=== PATIENT | female | born 1955 | race African-American/Black ===

== ENCOUNTER 2017-09-26 15:37 | Emergency (ER) | payer MEDICAID ==
[~2017-09-26] VITALS: Ht 180.3 cm; Wt 65.8 kg
[~2017-09-26 15:37] MED LIST: ATEN25TA2 PO; RIZA10TA16 PO
[2017-09-26 15:41] VITALS: BP 149/90
--- NOTE | 2017-09-26 15:48 | NUR ---
PT AMBULATED TO ER CHAIR D
--- NOTE | 2017-09-26 15:55 | NUR ---
62F BIB SELF WITH C/O NASAL DRAINAGE X 2 DAYS, DENIES ANY FEVERS/CHILLS. NO RESP DISTRESS. RESP EVEN AND UNLABORED. PT IS AOX4 WITH STEADY GAIT. SKIN WARM/PINK/DRY. NAD. VSS. WILL CONTINUE TO MONITOR.
== END 2017-09-26 16:00 | disposition home or self-care (01) ==
LOC: MED 15:37
DX: J02.9 Acute pharyngitis, unspecified (principal)
CPT/HCPCS: 99283

== ENCOUNTER 2018-12-01 19:42 | Emergency (ER) | payer MEDICARE, MEDICAID ==
[~2018-12-01] VITALS: Ht 180.3 cm; Wt 68.0 kg
[2018-12-01 19:54] VITALS: BP 137/79
--- NOTE | 2018-12-01 19:57 | NUR ---
VISUAL ACUITY BOTH EYE 20/200, RT EYE 20/200. LT 20/200
--- NOTE | 2018-12-01 19:57 | NUR ---
TO LOBBY A/W BED, AMBULATORY, VSS
--- NOTE | 2018-12-01 20:20 | NUR ---
PT BIB WHEELCHAIR TO ER BED 1
--- NOTE | 2018-12-01 20:21 | NUR ---
PT PRESENTED ER WITH C/O OF PAIN TO THE LEFT 2 TOES X 2 WEEKS. PT STATED SHE WAS PLAYING BASKETBALL WITH HER GRANDSON AND INJURED HER FOOT. PT HAS ROM AND IS ABLE TO WIGGLE TOES. NO BRUISING OR REDNESS TO SIGHT. PT IS A/O X 4. PAIN LEVEL IS 8/10 AT THIS TIME. ER MD MADE AWARE OF STATUS. SAFETY PROTOCOL IMPLEMENTED, BED RAILS UP X 1.
[2018-12-01 20:30] LABS: APPEARANCE,URINE CLEAR (CLEAR); BILIRUBIN,URINE 2+ (NEGATIVE); BLOOD, URINE TRACE-I (NEGATIVE); COLOR,URINE YELLOW (YELLOW); LEUKOCYTE ESTERASE ,URINE NEGATIVE (NEGATIVE); NITRITE, URINE NEGATIVE (NEGATIVE); UGLUCOSE TRACE (NEGATIVE)
[2018-12-01] MEDS ORDERED: ONDANSETRON 4 MG ODT PO ONE (20:50)
[2018-12-01] MEDS ORDERED: KETOROLAC 60 MG/2 ML VIAL IM ONE (20:50)
[2018-12-01 21:21] VITALS: BP 137/79
--- NOTE | 2018-12-01 21:21 | NUR ---
Patient discharged with v/s stable. Written and verbal after care instructions given and explained. Patient alert, oriented and verbalized understanding of instructions. Ambulatory with steady gait. All questions addressed prior to discharge. ID band removed. Patient advised to follow up with PMD. Rx of ZOFRAN, MOTRIN, AND BACTRIM WAS given. Patient educated on indication of medication including possible reaction and side effects. Opportunity to ask questions provided and answered.
== END 2018-12-01 21:21 | disposition home or self-care (01) ==
LOC: MED 19:42
DX: S92.501A Displaced unspecified fracture of right lesser toe(s), initial encounter for closed fracture (principal); N39.0 Urinary tract infection, site not specified; I10 Essential (primary) hypertension; Z85.038 Personal history of other malignant neoplasm of large intestine; Z79.899 Other long term (current) drug therapy; X58.XXXA Exposure to other specified factors, initial encounter; Y93.89 Activity, other specified; Y92.89 Other specified places as the place of occurrence of the external cause; Y99.8 Other external cause status
CPT/HCPCS: 73660; 81003; 96372; 99284; J1885; Q0092; Q0162

== ENCOUNTER 2019-01-28 10:33 | Emergency (ER) | payer MEDICARE, MEDICAID ==
[~2019-01-28] VITALS: Ht 180.3 cm; Wt 60.8 kg
[2019-01-28 10:35] VITALS: BP 120/91
--- NOTE | 2019-01-28 10:35 | NUR ---
BIB SELF. PT C/O BURNING SENSATION DURING URINATION, CHILLS SINCE YESTERDAY. STATES HAVING PAIN 8/10 AT LOWER ABD, DENIES FEVER, NAUSEA, VOMITING.PT AAOX4. ABDOMEN SOFT AND NON-TENDER TO TOUCH.VS NORMAL AT THIS TIME. PROVIDED URINE CUP FOR SPECIMEN. ER MD TO SEE PT.
--- NOTE | 2019-01-28 10:35 | NUR ---
Note [email or web address] in EDM - 01/28/19 at 1057 by [facility] BIB SELF. PT C/O BURNING SENSATION DURING URINATION, CHILLS SINCE YESTERDAY. STATES HAVING PAIN 8/10 AT LOWER ABD, DENIES FEVER, NAUSEA, VOMITING. PT AAOX4. VS NORMAL AT THIS TIME. PROVIDED URINE CUP FOR SPECIMEN. SUNG LOPEZ TO SEE PT.
--- NOTE | 2019-01-28 10:38 | NUR ---
Patient ambulated to bed 11. RN evaluating patient at bedside.
--- NOTE | 2019-01-28 11:36 | NUR ---
Dr. Parra evaluating patient at bedside.
[2019-01-28] MEDS ORDERED: KETOROLAC 60 MG/2 ML VIAL IM ONE (11:40)
--- NOTE | 2019-01-28 11:41 | NUR ---
PT SEEN BY DR. KWON AT THE BEDSIDE.
--- NOTE | 2019-01-28 12:03 | NUR ---
Dr. Parra re-evaluating patient at bedside.
[2019-01-28 12:06] VITALS: BP 120/91
--- NOTE | 2019-01-28 12:06 | NUR ---
Patient discharged with v/s stable. Written and verbal after care instructions given and explained. Patient alert, oriented and verbalized understanding of instructions. Ambulatory with steady gait. All questions addressed prior to discharge. ID band removed. Patient advised to follow up with PMD. Rx of INDERAL, MOTRIN AND CIPRO given. Patient educated on indication of medication including possible reaction and side effects. Opportunity to ask questions provided and answered.
== END 2019-01-28 12:06 | disposition home or self-care (01) ==
LOC: MED 10:33
DX: N39.0 Urinary tract infection, site not specified (principal); R19.7 Diarrhea, unspecified; I10 Essential (primary) hypertension; Z90.49 Acquired absence of other specified parts of digestive tract; Z79.899 Other long term (current) drug therapy; Z85.038 Personal history of other malignant neoplasm of large intestine; Z98.890 Other specified postprocedural states
CPT/HCPCS: 81002; 81025; 96372; 99283; J1885

== ENCOUNTER 2019-02-15 13:40 | Emergency (ER) | payer MEDICARE, MEDICAID ==
[~2019-02-15] VITALS: Ht 180.3 cm; Wt 56.7 kg
[2019-02-15 13:44] VITALS: BP 133/67
--- NOTE | 2019-02-15 13:51 | NUR ---
PT PROVIDED URINE SAMPLE AND TO JESUS KENNEDY.
--- NOTE | 2019-02-15 14:00 | NUR ---
PT BIBA C/O FALL, PT STATES SHE WAS GETTING OUT OF CAR AND FELL AND HIT BACK OF HEAD, PT DENIES LOC, PT STATES SHE FELL 2 DAYS AGO AND HAD STITCHES PLACED TO RT SIDE OF EYEBROW. PT AWAKE AND ALERT, PUPILS EQUAL AND REACTIVE, PT RECALLS ALL EVENTS THAT HAPPENED TODAY, AMBULATORY . DENIES N/V/D; SKIN IS PINK/WARM/DRY; AAOX4; PT DENIES ANY FEVER, CP, SOB, OR COUGH AT THIS TIME; PATIENT STATES BACK PAIN AND HEADACHE OF 7/10 AT THIS TIME; VSS; PATIENT POSITIONED FOR COMFORT; HOB ELEVATED; BEDRAILS UP X1; BED DOWN. ER MD MADE AWARE OF PT STATUS.
--- NOTE | 2019-02-15 14:24 | NUR ---
PT AMBULATED TO BED 05.
[2019-02-15] MEDS ORDERED: NACL 0.9% 1,000 ML IV SCH (15:48)
[2019-02-15] MEDS ORDERED: ONDANSETRON 4 MG/2 ML VIAL IVP ONE (15:50)
--- NOTE | 2019-02-15 16:02 | NUR ---
PATIENT TAKEN FOR CT SCAN VIA [facility] AT THIS TIME.
[2019-02-15 16:31] LABS: APPEARANCE,URINE CLEAR (CLEAR); BILIRUBIN,URINE NEGATIVE (NEGATIVE); BLOOD, URINE NEGATIVE (NEGATIVE); COLOR,URINE YELLOW (YELLOW); LEUKOCYTE ESTERASE ,URINE NEGATIVE (NEGATIVE); NITRITE, URINE NEGATIVE (NEGATIVE); PH,URINE 6.5 (5.0-9.0); UGLUCOSE NEGATIVE (NEGATIVE)
[2019-02-15 16:36] LABS: BASOPHILS % (AUTO) 0.4 % (0.0-2.0); EOSINOPHILS % (AUTO) 0.9 % (0.0-4.0); HEMATOCRIT 38.1 % (36-48); LYMPHOCYTES # (AUTO) 1.3 K/uL (2.5-16.5); LYMPHOCYTES % (AUTO) 34.9 % (20.5-51.1); MEAN CORPUSCULAR HEMOGLOBIN 32 pg (27-31); MEAN CORPUSCULAR HGB CONC 34 g/dL (33-37); MEAN CORPUSCULAR VOLUME 94.6 fL (80-94); MONOCYTES # (AUTO) 0.4 K/uL (0.8-1.0); MONOCYTES % (AUTO) 11.2 % (1.7-9.3); NEUTROPHILS % (AUTO) 52.6 % (42.2-75.2); PLATELET COUNT (AUTO) 167 K/uL (140-450); RED BLOOD CELL COUNT(AUTO) 4.03 MIL/uL (4.20-5.40); RED CELL DISTRIBUTION WIDTH 14.6 % (11.6-13.7); WHITE BLOOD COUNT (AUTO) 3.7 K/uL (4.8-10.8)
[2019-02-15 16:38] LABS: BARBITURATE, URINE NEG. ng/ml (NEG <=200); BENZODIAZEPINE, URINE NEG. ng/mL (NEG <=200); CANNABINOID, URINE NEG. ng/mL (NEG <=50); COCAINE, URINE NEG. ng/mL (NEG <=300); OPIATE, URINE NEG. ng/mL (NEG <=2000); PHENCYCLIDINE SCREEN,URINE POS. ng/mL (NEG <=25)
[2019-02-15 16:48] LABS: ANION GAP 11.2 (8-16); CARBON DIOXIDE 29.8 mmol/L (21-32); CREATININE 0.9 mg/dL (0.6-1.3)
[2019-02-15 16:51] LABS: PROTHROMBIN TIME 9.5 secs (10.8-13.4)
[2019-02-15 16:55] LABS: ALBUMIN 3.5 g/dL (3.4-5.0); MAGNESIUM 1.8 mg/dL (1.8-2.4); TOTAL BILIRUBIN 0.4 mg/dL (0.0-1.0)
[2019-02-15 17:19] LABS: URIC ACID 3.5 mg/dL (2.6-7.2)
[2019-02-15 18:20] VITALS: BP 122/60
--- NOTE | 2019-02-15 18:21 | NUR ---
Patient discharged with v/s stable. Written and verbal after care instructions given and explained. Patient alert, oriented and verbalized understanding of instructions. Ambulatory with steady gait. All questions addressed prior to discharge. ID band removed. Patient advised to follow up with PMD. Rx of VISTARIL given. Patient educated on indication of medication including possible reaction and side effects. Opportunity to ask questions provided and answered.
== END 2019-02-15 18:21 | disposition home or self-care (01) ==
LOC: MED 13:40
DX: R27.0 Ataxia, unspecified (principal); F16.10 Hallucinogen abuse, uncomplicated; I10 Essential (primary) hypertension; F32.9 Major depressive disorder, single episode, unspecified; Z85.038 Personal history of other malignant neoplasm of large intestine; Z79.899 Other long term (current) drug therapy; Z86.19 Personal history of other infectious and parasitic diseases
CPT/HCPCS: 36415; 70450; 71045; 80053; 80173; 80305; 81003; 81025; 82150; 82550; 83690; 83735; 84484; 84550; 85025; 85379; 85610; 86140; 86886; 86900; 86901; 93005; 96374; 99284; J2405; J7030; Q0092

== ENCOUNTER 2019-03-02 07:43 | Emergency (ER) | payer MEDICARE, MEDICAID ==
[~2019-03-02] VITALS: Ht 180.3 cm; Wt 59.0 kg
--- NOTE | 2019-03-02 07:43 | NUR ---
Patient BIBA BLS, transferred to bed 7. RN evaluating patient at bedside.
[2019-03-02 07:45] VITALS: BP 144/71
--- NOTE | 2019-03-02 07:45 | NUR ---
BIB ALS, C/O cough, chest pain, headache x 3 days . pt also c/o dysuria and urgency x 3 days. DENIES N/V/D; SKIN IS PINK/WARM/DRY;awake,alert. LUNGS CLEAR BL; HR EVEN AND REGULAR; PT DENIES ANY FEVER, SOB, AT THIS TIME; PATIENT STATES PAIN OF 7/10 AT THIS TIME; VSS; PATIENT POSITIONED FOR COMFORT; HOB ELEVATED; BEDRAILS UP X2; BED DOWN. ER MD MADE AWARE OF PT STATUS.
--- NOTE | 2019-03-02 07:52 | NUR ---
Dr. Santos evaluating patient at bedside.
--- NOTE | 2019-03-02 08:03 | NUR ---
cv tech at bedside.
[2019-03-02 08:11] LABS: BASOPHILS % (AUTO) 0.2 % (0.0-2.0); EOSINOPHILS # (AUTO) 0.1 K/uL (0-0.4); EOSINOPHILS % (AUTO) 2.5 % (0.0-4.0); HEMATOCRIT 32.5 % (36-48); HEMOGLOBIN 11.3 g/dL (12.0-16.0); LYMPHOCYTES # (AUTO) 1.1 K/uL (2.5-16.5); LYMPHOCYTES % (AUTO) 42.8 % (20.5-51.1); MEAN CORPUSCULAR HEMOGLOBIN 32 pg (27-31); MEAN CORPUSCULAR HGB CONC 35 g/dL (33-37); MEAN CORPUSCULAR VOLUME 93.5 fL (80-94); MONOCYTES # (AUTO) 0.4 K/uL (0.8-1.0); MONOCYTES % (AUTO) 15.8 % (1.7-9.3); NEUTROPHILS % (AUTO) 38.7 % (42.2-75.2); PLATELET COUNT (AUTO) 133 K/uL (140-450); RED BLOOD CELL COUNT(AUTO) 3.48 MIL/uL (4.20-5.40); RED CELL DISTRIBUTION WIDTH 14.1 % (11.6-13.7); WHITE BLOOD COUNT (AUTO) 2.7 K/uL (4.8-10.8)
[2019-03-02 08:27] LABS: ALBUMIN 3.1 g/dL (3.4-5.0); ANION GAP 8.2 (8-16); CARBON DIOXIDE 30.9 mmol/L (21-32); CREATININE 0.8 mg/dL (0.6-1.3); POTASSIUM 4.1 mmol/L (3.5-5.1); TOTAL BILIRUBIN 0.4 mg/dL (0.0-1.0)
[2019-03-02 09:10] LABS: APPEARANCE,URINE CLEAR (CLEAR); BILIRUBIN,URINE NEGATIVE (NEGATIVE); BLOOD, URINE NEGATIVE (NEGATIVE); COLOR,URINE YELLOW (YELLOW); LEUKOCYTE ESTERASE ,URINE TRACE (NEGATIVE); NITRITE, URINE NEGATIVE (NEGATIVE); PH,URINE 8.5 (5.0-9.0); UGLUCOSE NEGATIVE (NEGATIVE)
[2019-03-02 09:20] LABS: RBC,URINE NONE SEEN /HPF (0-5); WBC,URINE 0-5 /HPF (0-5)
--- NOTE | 2019-03-02 09:46 | NUR ---
PT STS " I DO NOT WANT TO GO BACK TO MY DAUGHTER HOUSE BECAUSE ALL SHE WANTS ME TO DO IS WATCH HER KIDS. 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
[2019-03-02 10:05] VITALS: BP 135/70
--- NOTE | 2019-03-02 10:05 | NUR ---
Note undone in EDM - 03/02/19 at 1234 by MAYELIN Patient discharged with v/s stable. Written and verbal after care instructions given and explained. Patient alert, oriented and verbalized understanding of instructions. Ambulatory with steady gait. All questions addressed prior to discharge. ID band removed. Patient advised to follow up with PMD. Rx of PROMETHAZINE NAD PYRIDIUM given. Patient educated on indication of medication including possible reaction and side effects. Opportunity to ask questions provided and answered. PT STATED SHE WANTS TO WAIT FOR SOCIAL WORK IN [address]. LUNCH PACKAGE OFFERED.
--- NOTE | 2019-03-02 10:26 | NUR ---
Spoke with Scrummaster, Jyoti, will come evaluate the patient.
--- NOTE | 2019-03-02 10:39 | NUR ---
Jyoti evaluating patient at bedside.
--- NOTE | 2019-03-02 14:04 | NUR ---
DELEON CAB ETA 45 MINS. [facility] AT BEDSIDE.
--- NOTE | 2019-03-02 14:05 | NUR ---
Patient discharged with v/s stable. Written and verbal after care instructions given and explained. Patient alert, oriented and verbalized understanding of instructions. Ambulatory with steady gait. All questions addressed prior to discharge. ID band removed. Patient advised to follow up with PMD. Rx of PROMETHAZINE NAD PYRIDIUM given. Patient educated on indication of medication including possible reaction and side effects. Opportunity to ask questions provided and answered.
--- NOTE | 2019-03-02 14:08 | NUR ---
CALLED PT FAMILY WITH
== END 2019-03-02 14:05 | disposition home or self-care (01) ==
LOC: MED 07:43
DX: F03.90 Unspecified dementia, unspecified severity, without behavioral disturbance, psychotic disturbance, mood disturbance, and anxiety (principal); R05 Cough; R30.0 Dysuria; I10 Essential (primary) hypertension; Z85.038 Personal history of other malignant neoplasm of large intestine; Z79.899 Other long term (current) drug therapy
CPT/HCPCS: 36415; 71045; 80053; 81001; 84484; 85025; 93005; 99284; Q0092

== ENCOUNTER 2019-04-01 13:44 | Inpatient (IN) | payer MEDICAID, MEDICARE ==
[~2019-04-01] VITALS: Ht 180.3 cm; Wt 55.3 kg
[2019-04-01 14:04] VITALS: BP 129/75
--- NOTE | 2019-04-01 14:13 | NUR ---
WAIT IN LOBBY, VSS.
--- NOTE | 2019-04-01 14:59 | NUR ---
PT AMBULATED TO ER BED 06
--- NOTE | 2019-04-01 15:16 | NUR ---
C/O PERIUMBILICAL PAIN X 4 DAYS THAT IS ACHING AND COMES AND GOES, PAINFUL URINATION X 3 DAYS, CONSTANT MIGRAINE X 3 DAYS. STATES MIGRAINE VILLASENOR IS CAUSING THE MOST PAIN RIGHT NOW 05/18. STATES NAUSEA. DENIES VOMITING. DENIES DIARRHEA. LBM TODAY. FELT WARM LAST NIGHT BUT DID NOT CHECK TEMP. TRIED PUTTING ICE PACK TO HEAD FOR VILLASENOR BUT NO RELIEF. MED HX: HTN Addendum: 04/01/19 at 1617 by JOANNE NOTE BY JENNIFER CASTLE RN
[2019-04-01 16:09] LABS: APPEARANCE,URINE CLEAR (CLEAR); BILIRUBIN,URINE NEGATIVE (NEGATIVE); BLOOD, URINE NEGATIVE (NEGATIVE); COLOR,URINE YELLOW (YELLOW); LEUKOCYTE ESTERASE ,URINE TRACE (NEGATIVE); NITRITE, URINE NEGATIVE (NEGATIVE); PH,URINE 5.5 (5.0-9.0); UGLUCOSE NEGATIVE (NEGATIVE)
--- NOTE | 2019-04-01 16:17 | NUR ---
DR. ALEJANDRE EVALUATING PT AT BEDSIDE
[2019-04-01 16:30] LABS: CALCIUM OXALATE CRYSTALS,UR 0-10 /HPF (None Seen); RBC,URINE 0-5 /HPF (0-5)
[2019-04-01] MEDS ORDERED: KETOROLAC 15 MG/ML VIAL IVP ONE (16:45)
[2019-04-01 16:57] LABS: BASOPHILS % (AUTO) 0.6 % (0.0-2.0); HEMATOCRIT 34.4 % (36-48); LYMPHOCYTES # (AUTO) 1.5 K/uL (2.5-16.5); LYMPHOCYTES % (AUTO) 43.7 % (20.5-51.1); MEAN CORPUSCULAR HEMOGLOBIN 33 pg (27-31); MEAN CORPUSCULAR HGB CONC 35 g/dL (33-37); MEAN CORPUSCULAR VOLUME 93.2 fL (80-94); MONOCYTES # (AUTO) 0.4 K/uL (0.8-1.0); MONOCYTES % (AUTO) 11.1 % (1.7-9.3); NEUTROPHILS # (AUTO) 1.5 K/uL (1.8-7.7); NEUTROPHILS % (AUTO) 43.6 % (42.2-75.2); PLATELET COUNT (AUTO) 119 K/uL (140-450); RED BLOOD CELL COUNT(AUTO) 3.69 MIL/uL (4.20-5.40); RED CELL DISTRIBUTION WIDTH 13.1 % (11.6-13.7); WHITE BLOOD COUNT (AUTO) 3.5 K/uL (4.8-10.8)
[2019-04-01 17:15] LABS: ANION GAP 11.5 (8-16); CARBON DIOXIDE 29.2 mmol/L (21-32); CREATININE 0.8 mg/dL (0.6-1.3); POTASSIUM 3.7 mmol/L (3.5-5.1)
[2019-04-01 17:21] LABS: ALBUMIN 3.4 g/dL (3.4-5.0); TOTAL BILIRUBIN 0.3 mg/dL (0.0-1.0)
--- NOTE | 2019-04-01 17:28 | NUR ---
LEATHER TANNER HERE TO TAKE PATIENT TO CT.
--- NOTE | 2019-04-01 17:48 | NUR ---
PATIENT BACK FROM CT.
--- NOTE | 2019-04-01 18:13 | NUR ---
GAVE PATIENT ICE PACK FOR HEADACHE PER PT REQUEST.
[2019-04-01] MEDS ORDERED: MORPHINE SULFATE 4 MG/ML SYR IVP ONE (18:15)
[2019-04-01] MEDS ORDERED: NACL 0.9% 1,000 ML IV ONE (18:15)
--- NOTE | 2019-04-01 18:33 | NUR ---
INSTRUCTIONAL SUPPORT TECHNICIAN DRAWING BLOOD CULTURES. WILL ADMIN IV ABX AFTER BLOOD CULTURES DRAWN.
[2019-04-01] MEDS ORDERED: MORPHINE SULFATE 2 MG/ML SYR IVP PRN (18:35)
[2019-04-01] MEDS ORDERED: ACETAMINOPHEN 325 MG TAB PO PRN (18:35)
[2019-04-01] MEDS ORDERED: HYDROcodone/APAP 7.5/325 MG 1 TAB PO PRN (18:35)
[2019-04-01] MEDS ORDERED: ONDANSETRON 4 MG/2 ML VIAL IM/IVP PRN (18:35)
[2019-04-01] MEDS ORDERED: DOCUSATE SODIUM 100 MG GELCAP PO PRN (18:35)
[2019-04-01] MEDS ORDERED: cefTRIAXone 1,000 MG VIAL ONE (18:39)
--- NOTE | 2019-04-01 19:20 | NUR ---
Patient will be admitted to care of DR. MADRID. Admited to MED SURG. Will go to [id number]. Belongings list completed. Report to LEDY LITTLEJOHN.
[2019-04-01 19:28] LABS: PROTHROMBIN TIME 10.4 secs (10.8-13.4)
--- NOTE | 2019-04-01 19:30 | NUR ---
ADMITTED THIS 63 YEAR OLD FEMALE FORM ER PER WHEELCHAIR WITH CC OF ABDOMINAL PAIN AND BACK PAIN, AMBULATORY TO BED WITH STEADY GAIT, ASSESSMENT DONE, VITAL SIGNS STABLE, DENIES PAIN AT THIS TIME, ORIENTED TO ROOM AND CALL LIGHT, INSTRUCTED NPO EXCEPT MEDS ORDERED, VERBALIZED UNDERSTANDING, IVF INFUSING WELL, PLAN OF CARE DISCUSSED, CALL LIGHT WITHIN REACH.
[2019-04-01 19:34] LABS: CHOL/HDL RATIO 2.1 (1-4.5); MAGNESIUM 1.7 mg/dL (1.8-2.4); PHOSPHORUS 3.6 mg/dL (2.5-4.9); THYROID STIMULATING HORMONE 0.48 uIU/mL (0.34-3.74)
[2019-04-01] MEDS ORDERED: LISI-424 PO (19:54)
[2019-04-01 20:00] VITALS: BP 136/78
[2019-04-01] MEDS ORDERED: KETOROLAC 15 MG/ML VIAL IVP PRN (20:20)
[2019-04-01] MEDS: POLYVINYL ALCOHOL 1.4% OP 15 ML SOL OP SCH (21:00)
[2019-04-01] MEDS: PANTOPRAZOLE 40 MG INJ VIAL IVP SCH (21:14)
[2019-04-01] MEDS: NACL 0.9% 1,000 ML IV SCH (21:14)
[2019-04-01] MEDS ORDERED: MAGNESIUM OXIDE 400 MG TAB PO ONE (22:00)
[2019-04-01] MEDS: TAMSULOSIN 0.4 MG CAP PO SCH (22:03)
--- NOTE | 2019-04-01 22:10 | NUR ---
PT AMBULATED TO BR WITH STEADY GAIT, VOIDED FREELY, ALL NEEDS ATTENDED.
--- NOTE | 2019-04-01 23:20 | NUR ---
PT COMPLAINING OF PAIN, VITAL SIGNS STABLE, MEDICATED WITH MORPHINE IVP, CONTINUE TO MONITOR CLOSELY.
[2019-04-02] VITALS: BP 110/64
[2019-04-02] MEDS: NACL 0.9% 1,000 ML IV SCH ×4 (01:11→16:15)
[2019-04-02 01:47] LABS: BARBITURATE, URINE NEG. ng/ml (NEG <=200); BENZODIAZEPINE, URINE NEG. ng/mL (NEG <=200); CANNABINOID, URINE NEG. ng/mL (NEG <=50); COCAINE, URINE NEG. ng/mL (NEG <=300); OPIATE, URINE NEG. ng/mL (NEG <=2000); PHENCYCLIDINE SCREEN,URINE POS. ng/mL (NEG <=25)
--- NOTE | 2019-04-02 03:40 | NUR ---
PT SLEEPING, NO SIGNS OF DISTRESS, IVF INFUSING WELL, MONITORED CLOSELY.
--- NOTE | 2019-04-02 05:40 | NUR ---
PT SLEEPING, NO SIGNS OF DISTRESS, IVF INFUSING WELL, MAINTAINED ON NPO EXCEPT MEDS.
--- NOTE | 2019-04-02 07:10 | NUR ---
PT AWAKE, NO SIGNS OF DISTRESS, REPORT GIVEN TO RN LOBITO FOR CONTINUITY OF CARE.
[2019-04-02 07:32] LABS: BASOPHILS % (AUTO) 0.4 % (0.0-2.0); EOSINOPHILS % (AUTO) 1.8 % (0.0-4.0); LYMPHOCYTES # (AUTO) 1.2 K/uL (2.5-16.5); LYMPHOCYTES % (AUTO) 45.3 % (20.5-51.1); MEAN CORPUSCULAR HEMOGLOBIN 32 pg (27-31); MEAN CORPUSCULAR HGB CONC 35 g/dL (33-37); MEAN CORPUSCULAR VOLUME 93.1 fL (80-94); MONOCYTES # (AUTO) 0.3 K/uL (0.8-1.0); MONOCYTES % (AUTO) 11.8 % (1.7-9.3); NEUTROPHILS % (AUTO) 40.7 % (42.2-75.2); PLATELET COUNT (AUTO) 92 K/uL (140-450); RED BLOOD CELL COUNT(AUTO) 3.11 MIL/uL (4.20-5.40); RED CELL DISTRIBUTION WIDTH 13.3 % (11.6-13.7); WHITE BLOOD COUNT (AUTO) 2.6 K/uL (4.8-10.8)
--- NOTE | 2019-04-02 07:37 | NUR ---
RECEIVED HAND OFF REPORT FROM PM RN PT AWAKE IN BED PT APPEARS STABLE AND IN NO APPARENT DISTRESS. ALL SAFETY MEASURES ARE IN PLACE WILL CONTINUE TO MONITOR.
[2019-04-02 07:45] LABS: ANION GAP 8.1 (8-16); CARBON DIOXIDE 27.5 mmol/L (21-32); POTASSIUM 3.6 mmol/L (3.5-5.1)
[2019-04-02 07:54] LABS: CREATININE 0.6 mg/dL (0.6-1.3)
[2019-04-02 07:56] LABS: MAGNESIUM 1.6 mg/dL (1.8-2.4); PHOSPHORUS 3.3 mg/dL (2.5-4.9)
[2019-04-02] MEDS ORDERED: MAG SULF 2000 MG/WATER PREMIX 50 ML IV SCH (08:31)
[2019-04-02 08:45] VITALS: BP 123/70
[2019-04-02] MEDS ORDERED: SIMETHICONE 40 MG/0.6 ML PO SCH (09:12)
--- NOTE | 2019-04-02 09:34 | NUR ---
FREQUENT ROUNDING ON PT PT APPEARS STABLE AND IN NO APPARENT DISTRESS. ALL SAFETY MEASURES ARE IN PLACE WILL CONTINUE TO MONITOR
[2019-04-02] MEDS: TAMSULOSIN 0.4 MG CAP PO SCH (10:02)
[2019-04-02] MEDS: PANTOPRAZOLE 40 MG INJ VIAL IVP SCH (10:02)
[2019-04-02] MEDS: LACTOBACILLUS RHAMNOSUS GG 1 EACH CAP PO SCH (10:02)
--- NOTE | 2019-04-02 11:25 | NUR ---
FREQUENT ROUNDING ON PT PT APPEARS STABLE AND IN NO APPARENT DISTRESS. ALL SAFETY MEASURES ARE IN PLACE WILL CONTINUE TO MONITOR.
--- NOTE | 2019-04-02 14:23 | NUR ---
PT MOVED TO 127A PT STABLE AND IN NO APPARENT DISTRESS. ALL SAFETY MEASURES ARE IN PLACE WILL CONTINUE TO MONITOR. PT HAS ALL PERSONAL BELONGINGS
--- NOTE | 2019-04-02 14:49 | NUR ---
PT UPSET AND ASKING TO SPEAK WITH DR. SHANA VIDAL AND DR. ORDOÑEZ
[2019-04-02 16:15] VITALS: BP 121/61
--- NOTE | 2019-04-02 16:49 | NUR ---
FREQUENT ROUNDING ON PT PT APPEARS STABLE AND IN NO APPARENT DISTRESS. ALL SAFETY MEASURES ARE IN PLACE WILL CONTINUE TO MONITOR
--- NOTE | 2019-04-02 19:30 | NUR ---
RECEIVED PT ON BED, AAOX4, DENIES ANY PAIN, IVF INFUSING WELL, STATED TOLERATING REGULAR DIET, PLAN OF CARE DISCUSSED, SAFETY MEASURES IN PLACE, CALL LIGHT WITHIN REACH.
--- NOTE | 2019-04-02 19:31 | NUR ---
ENDORSED TO PM RN PT STABLE AND IN NO APPARENT DISTRESS.
[2019-04-02] MEDS: SIMETHICONE 80 MG TAB.CHEW PO PRN (20:04)
[2019-04-02] MEDS: POLYVINYL ALCOHOL 1.4% OP 15 ML SOL OP PRN (20:04)
--- NOTE | 2019-04-02 20:10 | NUR ---
PT COMPLAINING OF GAS, DR LOZANO WITH NEW ORDER, MYLICON PO GIVEN, DUE ROCEPHIN IVPB ADMINISTERED, ALL NEEDS ATTENDED.
[2019-04-02] MEDS: POLYVINYL ALCOHOL 1.4% OP 15 ML SOL OP SCH (20:16)
[2019-04-02] MEDS ORDERED: diphenhydrAMINE 50 MG CAP PO SCH (21:45)
--- NOTE | 2019-04-02 23:30 | NUR ---
PT SLEEPING, AROUSABLE TO NAME, VITAL SIGNS STABLE, DENIES ANY PAIN, IVF INFUSING WELL, CONTINUE TO MONITOR CLOSELY.
[2019-04-03] VITALS: BP 127/65
[2019-04-03] MEDS: NACL 0.9% 1,000 ML IV SCH ×2 (03:22→06:08)
[2019-04-03] MEDS: SIMETHICONE 80 MG TAB.CHEW PO PRN ×2 (04:16→08:29)
--- NOTE | 2019-04-03 04:20 | NUR ---
PT COMPLAINING OF GAS PAIN, MEDICATED PRN WITH MYLICON PO, MONITORED CLOSELY.
[2019-04-03 06:35] LABS: ANION GAP 8.8 (8-16); CARBON DIOXIDE 27.1 mmol/L (21-32); CREATININE 0.7 mg/dL (0.6-1.3); POTASSIUM 3.9 mmol/L (3.5-5.1)
[2019-04-03 06:41] LABS: MAGNESIUM 1.5 mg/dL (1.8-2.4); PHOSPHORUS 3.5 mg/dL (2.5-4.9)
--- NOTE | 2019-04-03 07:30 | NUR ---
PT SLEEPING, NO SIGNS OF DISTRESS, BEDSIDE REPORT GIVEN TO LEDY STEVENSON FOR CONTINUITY OF CARE.
--- NOTE | 2019-04-03 07:55 | NUR ---
RECEIVED BEDSIDE REPORT FROM HIGH FREQUENCY MILL OPERATOR RN. PT SLEEPING IN BED. ALL NEEDS CURRENTLY MET. NO DISTRESS NOTED. PT IS AAOX4. ON RA. PT AMBULATORY PER HIGH FREQUENCY MILL OPERATOR RN. SKIN IS INTACT. WILL EXPLAIN POC TO PT. BED IN LOW POSITION, CALL LIGHT WITHIN REACH. WILL ROUND FREQUENTLY ON PT.
[2019-04-03 08:00] VITALS: BP 130/68
[2019-04-03] MEDS ORDERED: OMEP20TC12 PO (08:08)
[2019-04-03] MEDS ORDERED: TAMS0.4C96 PO (08:08)
[2019-04-03] MEDS ORDERED: SULF-58 PO (08:09)
[2019-04-03] MEDS ORDERED: LACT10CA1 PO (08:10)
--- NOTE | 2019-04-03 08:11 | NUR ---
PATIENT HAS BEEN SCREENED AND CATEGORIZED HIGH NUTRITION RISK. PATIENT WILL BE SEEN WITHIN 1-2 DAYS OF ADMISSION. 04/03/[address]
[2019-04-03] MEDS: PANTOPRAZOLE 40 MG INJ VIAL IVP SCH (08:21)
[2019-04-03] MEDS: LACTOBACILLUS RHAMNOSUS GG 1 EACH CAP PO SCH (08:21)
[2019-04-03] MEDS: TAMSULOSIN 0.4 MG CAP PO SCH (08:21)
[2019-04-03] MEDS ORDERED: MAG SULF 2000 MG/WATER PREMIX 50 ML IV SCH (09:00)
[2019-04-03 09:11] LABS: BASOPHILS % (AUTO) 0.4 % (0.0-2.0); EOSINOPHILS # (AUTO) 0.1 K/uL (0-0.4); EOSINOPHILS % (AUTO) 2.5 % (0.0-4.0); HEMATOCRIT 29.9 % (36-48); HEMOGLOBIN 10.4 g/dL (12.0-16.0); LYMPHOCYTES # (AUTO) 1.1 K/uL (2.5-16.5); LYMPHOCYTES % (AUTO) 42.2 % (20.5-51.1); MEAN CORPUSCULAR HEMOGLOBIN 32 pg (27-31); MEAN CORPUSCULAR HGB CONC 35 g/dL (33-37); MEAN CORPUSCULAR VOLUME 93.2 fL (80-94); MONOCYTES # (AUTO) 0.4 K/uL (0.8-1.0); MONOCYTES % (AUTO) 13.8 % (1.7-9.3); NEUTROPHILS # (AUTO) 1.1 K/uL (1.8-7.7); NEUTROPHILS % (AUTO) 41.1 % (42.2-75.2); PLATELET COUNT (AUTO) 93 K/uL (140-450); RED CELL DISTRIBUTION WIDTH 13.1 % (11.6-13.7); WHITE BLOOD COUNT (AUTO) 2.7 K/uL (4.8-10.8)
--- NOTE | 2019-04-03 09:45 | NUR ---
ADMINISTERED MORNING MEDS TO PT. PT TOLERATED THEM WELL. WILL CONTINUE TO MONITOR PT CLOSELY.
--- NOTE | 2019-04-03 10:12 | NUR ---
ADMINISTERED MAG KAREN TO PT FOR MAGNESIUM OF 1.5. WILL ROUND FREQUENTLY ON PT.
[2019-04-03] MEDS: FLUTICASONE NASAL 50 MCG/ACTUATION 16 GM BTL NS SCH ×2 (11:50→12:24)
[2019-04-03] MEDS: POLYVINYL ALCOHOL 1.4% OP 15 ML SOL OP PRN (12:25)
--- NOTE | 2019-04-03 13:26 | NUR ---
PT SITTING IN BED HAVING LUNCH. WILL CONTINUE TO ROUND FREQUENTLY ON PT. BED IN LOW POSITION, CALL LIGHT WITHIN REACH.
--- NOTE | 2019-04-03 14:30 | NUR ---
PT DISCHARGED HOME FOR SELF CARE. PT GIVEN BUS VOUCHER TO GET HOME TO HER [facility]ID[facility]. PT SIGNED ALL DISCHARGE PAPERWORK. PT VERBALIZED UNDERSTANDING OF TEACHING. ALL MEDS SENT TO PT PHARMACY. ALL PERSONAL BELONGINGS TAKEN WITH PT. PT LEFT IN STABLE CONDITION ON BUS TO HOME.
== END 2019-04-03 14:30 | disposition home or self-care (01) | DRG 812 ==
LOC: MED 13:44 → MMU 18:37
PROVIDERS: ADMIT General Practice; ATTEND General Practice
DX: T40.7X1A Poisoning by cannabis (derivatives), accidental (unintentional), initial encounter (principal); G92 Toxic encephalopathy; K85.90 Acute pancreatitis without necrosis or infection, unspecified; N39.0 Urinary tract infection, site not specified; E83.42 Hypomagnesemia; N20.0 Calculus of kidney; K21.9 Gastro-esophageal reflux disease without esophagitis; F12.90 Cannabis use, unspecified, uncomplicated; E86.0 Dehydration; G43.909 Migraine, unspecified, not intractable, without status migrainosus; G89.29 Other chronic pain; M54.9 Dorsalgia, unspecified; N94.89 Other specified conditions associated with female genital organs and menstrual cycle; E78.1 Pure hyperglyceridemia; I10 Essential (primary) hypertension; Z79.899 Other long term (current) drug therapy; Z85.038 Personal history of other malignant neoplasm of large intestine; Z90.49 Acquired absence of other specified parts of digestive tract; Z83.3 Family history of diabetes mellitus; Z82.49 Family history of ischemic heart disease and other diseases of the circulatory system; Z91.19 Patient's noncompliance with other medical treatment and regimen; Z72.89 Other problems related to lifestyle; Y92.89 Other specified places as the place of occurrence of the external cause
CPT/HCPCS: 36415; 71045; 80048; 80053; 80305; 81001; 82150; 83036; 83690; 83735; 84100; 84443; 85025; 85610; 85730; 87040; 87081; 87086; 93005; 96374; 99285; C9113; J0696; J1885; J2270; J3475; J7030; J7060; Q0092; Q0163; Q9967

== ENCOUNTER 2019-04-28 13:08 | Emergency (ER) | payer MEDICARE, MEDICAID ==
[~2019-04-28] VITALS: Ht 180.3 cm; Wt 59.0 kg
[~2019-04-28 13:08] MED LIST changes: -ATEN25TA2 PO; +LACT10CA1 PO; +LISI-424 PO; +OMEP20TC12 PO; -RIZA10TA16 PO; +SULF-58 PO; +TAMS0.4C96 PO
[2019-04-28 13:13] VITALS: BP 135/79
[2019-04-28] MEDS ORDERED: IBUPROFEN 600 MG TAB PO ONE (15:15)
[2019-04-28] MEDS ORDERED: ACETAMINOPHEN EXTRA STRENGTH 500 MG TAB PO ONE (15:15)
[2019-04-28] MEDS ORDERED: AZITHROMYCIN 250 MG TAB PO ONE (16:20)
[2019-04-28] MEDS ORDERED: cefTRIAXone 250 MG in LIDOCAINE MPF 1% 0.9 ML IM ONE (16:20)
[2019-04-28 16:44] LABS: APPEARANCE,URINE CLEAR (CLEAR); BILIRUBIN,URINE NEGATIVE (NEGATIVE); BLOOD, URINE NEGATIVE (NEGATIVE); COLOR,URINE YELLOW (YELLOW); LEUKOCYTE ESTERASE ,URINE 2+ (NEGATIVE); NITRITE, URINE NEGATIVE (NEGATIVE); UGLUCOSE NEGATIVE (NEGATIVE)
[2019-04-28 17:29] LABS: RBC,URINE 0-5 /HPF (0-5)
[2019-04-28 18:36] VITALS: BP 155/98
[2019-05-02 06:13] LABS: CHLAMYDIA TRACHOMATIS AMP DNA Negative (Negative)
== END 2019-04-28 18:36 | disposition home or self-care (01) ==
LOC: MED 13:08
DX: R51 Headache (principal); N72 Inflammatory disease of cervix uteri; I10 Essential (primary) hypertension; Z85.038 Personal history of other malignant neoplasm of large intestine; Z79.899 Other long term (current) drug therapy
CPT/HCPCS: 36415; 81001; 87070; 87086; 87210; 87491; 96372; 99284; J0696; J2001